=== PATIENT | female | born 1975 | race Caucasian/White ===

== ENCOUNTER 2016-09-07 09:39 | Emergency (ER) | payer MEDICAID ==
[~2016-09-07] VITALS: Wt 59.0 kg
[~2016-09-07 09:39] MED LIST: IBUP800T25 PO; PERCOCET PO
[2016-09-07] MEDS ORDERED: FAMOTIDINE 20 MG INJ IV STA (10:27)
[2016-09-07] MEDS ORDERED: ONDANSETRON 4 MG INJ IV STA (10:27)
[2016-09-07] MEDS ORDERED: SOD CHLORIDE 0.9% 1,000 ML IV STA (10:27)
[2016-09-07] MEDS ORDERED: DICYCLOMINE 20 MG INJ IM ONE (10:30)
[2016-09-07 11:02] LABS: ADD UMIC YES; URINE BILIRUBIN (Dip) NEGATIVE (NEGATIVE); URINE BLOOD (Dip) 3+ (NEGATIVE); URINE COLOR LT. YELLOW (YELLOW); URINE GLUCOSE (Dip) NEGATIVE (NEGATIVE); URINE KETONES (Dip) NEGATIVE (NEGATIVE); URINE LEUKOCYTE ESTERASE (Dip) 1+ (NEGATIVE); URINE NITRITE (Dip) NEGATIVE (NEGATIVE); URINE TOTAL PROTEIN (Dip) 1+ (NEGATIVE); URINE UROBILINOGEN (Dip) 0.2 E.U./dL (0.1-1.0)
[2016-09-07 11:11] LABS: ALBUMIN 3.9 g/dl (3.3-4.9)
[2016-09-07 11:12] LABS: POTASSIUM 4.5 mmol/L (3.5-5.1)
[2016-09-07 11:14] LABS: ALBUMIN/GLOBULIN RATIO 1.18; BASOPHILS % 0.2 % (0.0-2.0); BILIRUBIN,INDIRECT 0.7 mg/dl (0-1.1); BILIRUBIN,TOTAL 0.7 mg/dl (0.2-1.3); CREATININE 0.76 mg/dl (0.44-1.00); EOSINOPHILS % 0.1 % (0.0-7.0); HEMOGLOBIN 16.8 g/dl (12.0-16.0); LYMPHOCYTES # 1.8 10^3/ul (0.8-2.9); LYMPHOCYTES % 8.1 % (15.0-51.0); MEAN CORPUSCULAR HEMOGLOBIN 30.1 pg (29.0-33.0); MEAN CORPUSCULAR HGB CONC 32.9 g/dl (32.0-37.0); MEAN CORPUSCULAR VOLUME 91.4 fl (82.0-101.0); MEAN PLATELET VOLUME 8.9 fl (7.4-10.4); MONOCYTE # 0.9 10^3/ul (0.3-0.9); MONOCYTES % 3.8 % (0.0-11.0); NEUTROPHIL # 19.9 10^3/ul (1.6-7.5); NEUTROPHILS % 87.8 % (39.0-77.0); PLATELET COUNT 294 10^3/UL (140-440); RED BLOOD COUNT 5.58 10^6/ul (4.20-5.40); RED CELL DISTRIBUTION WIDTH 13.6 % (11.5-14.5); TOTAL PROTEIN 7.2 g/dl (6.1-8.1); UNCORRECTED WBC 22.7 10^3/ul (4.8-10.8); WHITE BLOOD COUNT 22.7 10^3/ul (4.8-10.8)
[2016-09-07 11:15] LABS: CALCIUM 9.1 mg/dl (8.4-10.2); MAGNESIUM 1.8 mg/dl (1.7-2.5)
[2016-09-07 11:17] LABS: CONDITION 1; LH ANALYZER COMMENTS 1; SUSPECT 1
[2016-09-07 11:29] LABS: BACTERIA,URINE FEW
[2016-09-07] MEDS ORDERED: CEFTRIAXONE 1 GM/50 ML (PMX) 50 ML IVPB ONE (12:00)
--- NOTE | 2016-09-07 12:11 | ERD ---
ER Documentation Chief Complaint Date/Time DATE: 09/07/16 TIME: 12:09 Chief Complaint diarrhea and abdominal pain for the past 4 days HPI This is a 41-year-old female presents to the emergency room for evaluation of abdominal cramping and diarrhea for the past 4 days. This patient states that she has been taking Pepto-Bismol and Imodium and still has diarrhea. The patient came to the ER for evaluation. She denies any aggravating factors or relieving factors for her pain. She denies any fevers associated with this. ROS All systems reviewed and are negative except as per history of present illness. Medications Home Meds Discontinued Scripts Oxycodone Hcl/Acetaminophen (Percocet) 1 Tab Tab, 2 TAB PO Q4H Y for PAIN LEVEL 6-10, #30 TAB 0 Refills Prov:ZOË ALLEN MD 08/17/16 Ibuprofen* (Ibuprofen*) 800 Mg Tablet, 800 MG PO Q8, #20 TAB 0 Refills Prov:ZOË ALLEN MD 08/17/16 Allergies Allergies: Coded Allergies: No Known Allergy (Unverified , 08/13/16) PMhx/Soc Medical and Surgical Hx: pt denies Medical Hx History of Surgery: Yes (c/s 3 wks ago) Anesthesia Reaction: No Hx Neurological Disorder: No Hx Respiratory Disorders: No Hx Cardiac Disorders: No Hx Psychiatric Problems: No Hx Alcohol Use: No Hx Substance Use: No Hx Tobacco Use: No Smoking Status: Never smoker Physical Exam Vitals Vital Signs Date Time Temp Pulse Resp B/P Pulse Ox O2 Delivery O2 Flow Rate FiO2 09/07/16 09:56 97.8 78 20 120/74 98 Physical Exam INITIAL VITAL SIGNS: Reviewed by me GENERAL: The patient is well developed and appropriate for usual state of health in no apparent distress HEENT: Dry mucous membranes pupils equal, round, and reactive to light. EOMI. There is no scleral icterus. NECK: C-spine is soft and supple, there is no meningismus. There is no cervical lymphadenopathy. LUNGS: Clear to auscultation bilaterally. There are no rales, wheezes or rhonchi. HEART: Regular rate and rhythm, no murmurs, clicks, rubs or gallops. ABDOMEN: Soft, non-tender, non-distended. There are bowel sounds in all four quadrants. No rebound or guarding. EXTREMITIES: There is no peripheral cyanosis or edema. No focal swelling or erythema. NEUROLOGICAL: The patient moves all four extremities with 5/5 strength. Cranial nerves II - XII are intact. Normal gait. Alert and oriented SKIN: There is no apparent rash or petechiae. HEME/LYMPHATIC: There is no evidence of excessive bruising or lymphedema. PSYCHIATRIC: The patient does not appear anxious or depressed. Result Diagram: 09/07/16 1030 09/07/16 1030 Results 24 hrs Laboratory Tests Test 09/07/16 10:30 Alanine Aminotransferase (ALT/SGPT) 102IU/L Albumin 3.9g/dl Albumin/Globulin Ratio 1.18 Alkaline Phosphatase 101IU/L Anion Gap 17 Aspartate Amino Transf (AST/SGOT) 65IU/L Basophils # 0.010^3/ul Basophils % 0.2% Blood Urea Nitrogen 11mg/dl Calcium Level 9.1mg/dl Carbon Dioxide Level 27mmol/L Chloride Level 98mmol/L Creatinine 0.76mg/dl Differential Comment AUTO w/SCAN Direct Bilirubin 0.00mg/dl Eosinophils # 0.010^3/ul Eosinophils % 0.1% Globulin 3.30g/dl Glucose Level 107mg/dl Hematocrit 51.0% Hemoglobin 16.8g/dl Indirect Bilirubin 0.7mg/dl Lipase 24U/L Lymphocytes # 1.810^3/ul Lymphocytes % 8.1% Magnesium Level 1.8mg/dl Mean Corpuscular Hemoglobin 30.1pg Mean Corpuscular Hemoglobin Concent 32.9g/dl Mean Corpuscular Volume 91.4fl Mean Platelet Volume 8.9fl Monocytes # 0.910^3/ul Monocytes % 3.8% Neutrophils # 19.910^3/ul Neutrophils % 87.8% Nucleated Red Blood Cells # 0.010^3/ul Nucleated Red Blood Cells % 0.0/100WBC Platelet Count 87890^3/UL Potassium Level 4.5mmol/L Red Blood Count 5.5810^6/ul Red Cell Distribution Width 13.6% Sodium Level 137mmol/L Total Bilirubin 0.7mg/dl Total Protein 7.2g/dl Urine Bacteria FEW Urine Bilirubin NEGATIVE Urine Clarity CLOUDY Urine Color LT. YELLOW Urine Epithelial Cells FEW Urine Glucose NEGATIVE% Urine Hemoglobin 3+ Urine Ketones NEGATIVE Urine Leukocyte Esterase 1+ Urine Microscopic RBC 5-10/HPF Urine Microscopic WBC 25-50/HPF Urine Nitrite NEGATIVE Urine Specific Elsa 1.025 Urine Total Protein 1+ Urine Urobilinogen 0.2 E.U./dL Urine pH 5.5 White Blood Count 22.710^3/ul Current Medications Medications (Trade) Dose Ordered Sig/Radha Route PRN Reason Start Time Stop Time Status Last Admin Dose Admin Sodium Chloride (NS) 1,000 ml @ 1,000 mls/hr Q1H STAT IV 09/07/16 10:27 09/07/16 11:26 DC 09/07/16 10:53 Ondansetron HCl (Zofran Inj) 4 mg ONCE STAT IV 09/07/16 10:27 09/07/16 10:29 DC 09/07/16 10:53 Famotidine (Pepcid Iv) 20 mg ONCE STAT IV 09/07/16 10:27 09/07/16 10:29 DC 09/07/16 10:53 Dicyclomine HCl 10 mg 10 mg ONCE ONCE IM 09/07/16 10:30 09/07/16 10:31 DC 09/07/16 11:20 Ceftriaxone Sodium (Rocephin) 50 ml @ 100 mls/hr ONCE ONCE IVPB 09/07/16 12:00 09/07/16 12:29 09/07/16 11:42 Procedures/MDM This is a 41-year-old female presents to the emergency room for evaluation of diarrhea and abdominal cramping. Did know she had dry mucous membranes. Lab work was obtained putting a urinalysis. Lab work shows a leukocytosis of 23, 000. She is afebrile, not tachycardic, urinalysis does reveal an acute urinary tract infection. She was given Rocephin here in the emergency room. She will be discharged home at this time with a prescription for Keflex. She is breast- feeding I advised her Keflex is safe. I advised to return to the ER if she were to develop worsening symptoms or unremitting diarrhea and she verbalized understanding. Departure Diagnosis: Primary Impression: Acute cystitis Additional Impression: Abdominal pain Condition: Stable RABIACHELLY SPENCER Sep 07, 2016 12:11
[2016-09-07] MEDS ORDERED: CEPH-443 PO (12:12)
[2016-09-07 12:26] VITALS: BP 126/70; PULSE 65; RESP 18; TEMP 98.5
== END 2016-09-07 12:27 | disposition home or self-care (01) ==
LOC: E/R 09:39
DX: N30.00 Acute cystitis without hematuria (principal); R40.2252 Coma scale, best verbal response, oriented, at arrival to emergency department; R40.2362 Coma scale, best motor response, obeys commands, at arrival to emergency department; R40.2142 Coma scale, eyes open, spontaneous, at arrival to emergency department
CPT/HCPCS: 36415; 80053; 81001; 81003; 83690; 83735; 85025; 96372; 96374; 96375; J0500; J0696; J2405; J7030; Z7502; Z7610